=== PATIENT | male | born 1955 | race Caucasian/White ===

== ENCOUNTER 2019-08-06 09:58 | Observation (INO) ==
[2019-08-06] MEDS ORDERED: ASPIRIN PR ONE (10:22)
[2019-08-06] MEDS ORDERED: ASPIRIN PO ONE (10:22)
[2019-08-06 10:37] LABS: BASO# 0.03 X1000 (0.0-0.2); BASO% 0.2 % (0.0-0.8); EOS# 0.14 X1000 (0.0-0.7); EOS% 1.1 % (0.0-10.0); HEMATOCRIT 54.6 % (42.0-52.0); HEMOGLOBIN 17.3 g/dL (14.0-18.0); IMM GRAN# 0.04 X1000 (0.0-0.04); IMM GRAN% 0.3 % (0.0-0.5); LYMPH# 1.41 X1000 (1.2-3.4); MCH 28.9 PG (27-31); MCHC 31.7 g/dL (33-37); MCV 91.2 FL (81-99); MONO# 1.18 X1000 (0.11-0.59); MONO% 9.2 % (1.7-9.3); MPV 11.1 FL (7.4-10.4); NEUT% 78.2 % (42.2-75.2); PLT 255 X1000 (130-400); RBC 5.99 XMIL (4.7-6.1); RDW 14.9 % (11.5-14.5)
--- NOTE | 2019-08-06 10:41 | EKG Report ---
Test Performed on : 08/06/2019 10:11:13 AM Test Reason : neck pain Blood Pressure : / mmHG Vent. Rate : 107 BPM Atrial Rate : 107 BPM P-R Int : 132 ms QRS Dur : 076 ms QT Int : 326 ms P-R-T Axes : 073 052 087 degrees QTc Int : 435 ms Sinus tachycardia. Nonspecific T wave abnormality Abnormal ECG When compared with ECG of 08-MAY-2013 15:40, Nonspecific T wave abnormality now evident in Lateral leads Unconfirmed Result
[2019-08-06 10:50] LABS: INR 0.97; PROTIME 12.9 Seconds (11.0-16.0)
[2019-08-06 10:51] LABS: PTT 29.7 Seconds (22.3-41.8)
[2019-08-06 10:57] LABS: AGAP 16; ALB/GLOB RATIO 1.2; ALBUMIN 3.9 g/dL (3.5-5.0); ALKALINE PHOSPHATASE 95 U/L (32-122); BUN 11 mg/dL (8-22); CALCIUM 8.8 mg/dL (8.8-10.2); CHLORIDE 100 mmol/L (98-107); CK PROFILE 61 U/L (24-204); COSMO 281; CREATININE 0.9 mg/dL (0.7-1.2); ESTIMATED GFR > 60; GLUCOSE 166 mg/dL (70-104); GOT 13 U/L (10-34); GPT 13 U/L (10-44); POTASSIUM 4.2 mmol/L (3.5-5.1); SODIUM 139 mmol/L (136-145); TCO2 23 mmol/L (25-35); TOTAL BILIRUBIN 0.48 mg/dL (0.20-1.00); TOTAL PROTEIN 7.1 g/dL (6.3-8.3)
--- NOTE | 2019-08-06 10:58 | PROVIDER DOCUMENTATION ---
HPI-Screening - General Chief Complaint: Neck Pain Stated Complaint: NECK PAIN Time Seen by Provider: 08/06/19 10:53 Source: patient Allergies/Adverse Reactions: Allergies Allergy/AdvReac Type Severity Reaction Status Date / Time No Known Allergies Allergy Verified 05/04/16 11:27 Home Medications: Home Medication List Medication Instructions Recorded Confirmed Last Taken Type Losartan [Cozaar] 100 mg PO DAILY 12/16/12 05/04/16 05/03/16 History Metformin [Glucophage] 1,000 mg PO BID CC 12/16/12 05/04/16 05/03/16 History SIMVAstatin [Zocor] 20 mg PO QHS 12/16/12 05/04/16 05/03/16 History Tamsulosin [Flomax] 0.4 mg PO QHS 12/16/12 05/04/16 05/03/16 History Clopidogrel [Plavix] 75 mg PO DAILY 05/08/13 05/04/16 05/03/16 History Glipizide [Glipizide ER] 10 mg PO DAILY 05/08/13 05/04/16 05/03/16 History Methocarbamol 500 mg PO TID 05/08/13 05/04/16 05/03/16 History Albuterol Sulfate Inhaler 2 puff INH Q6H PRN PRN 11/12/13 05/04/16 05/03/16 History [Ventolin Hfa] Hydrocodone/Acetaminophen [Eads 1 each PO TID #10 tablet 05/04/16 Unknown Rx 7.5-325 Tablet] Ibuprofen [Motrin] 600 mg PO TID #20 tablet 05/04/16 Unknown Rx HPI: This is a 63 yowm that presents to the ED with left sided neck pain. The patients O2 sat was found to be 91% on RA during triage. He is currently on 2 L/min via NC and O2 remains 91-92%. Patient had a history of COPD and bulged disks in his neck. He states this pain is different from the pain he feels with the bulged disk. He complains of severe pain on palpation. Pain and difficulty with ROM started 2 days prior and have not gotten better or worse. He denies injury or sleeping wrong. Physical Exam-Screening - CONSTITUTIONAL General Appearance: appears well, alert, no apparent distress - EYES Eyes: pink conjunctivae - HEAD, EARS, NOSE, MOUTH & THROAT HENMT: normocephalic/atraumatic - NECK Neck: non-tender, supple, other (Patient has tenderness to left sternoclidomastoid muscle upon palpation. He cannot turn his neck or raise his head. Complains of pain and stiffness.) - RESPIRATORY Respiratory: chest non-tender, lungs clear, no accessory muscle use, decreased breath sounds (Decreased breath sounds in all armstrong) - CARDIOVASCULAR Cardiovascular: normal peripheral pulses, regular rate, rhythm, tachycardia - GASTROINTESTINAL (ABDOMEN) Abdominal Exam: normal bowel sounds, non tender, soft - MUSCULOSKELETAL Back Exam: no CVA tenderness, no vertebral tenderness, other (Tenderness and stiffness to left sternoclidomastoid muscle.) Extremity: normal range of motion Peripheral Pulses: radial (R): 2+ - SKIN Integumentary: normal color, warm/dry - PSYCHIATRIC Psych/Mental Status: normal mood/affect Screening Depart - Departure ED Screening Disposition: Continued in ED for Treatment Date of Disposition Decision: 08/06/19 Time of Disposition Decision: 10:53 DIAGNOSIS: Neck pain Disposition: STILL A PATIENT 30 Condition: Stable Referrals and Follow-Ups: None,PCP [Primary Care Provider] - Attestation - Physician/ VIVI Attestation Patient care was provided by Advanced Practice Provider:: Yes Advanced Practice Provider:: Delma Henry Advanced Practice Provider documentation review:: The Mid-level provider documentation, treatment plan and medical decision making was reviewed by the physician who agrees with all treatment and medical decision making by the MLP. The physician spent face to face time with patient:: No Advanced Practice Provider documentation review:: Supervising physician onsite and consulted in the evaluation and care of this patient. The physician did not have a face to face encounter with the patient.
--- NOTE | 2019-08-06 11:10 | Diag Imaging Result Doc PS360 ---
EXAM: CHEST-2 VIEWS 08/06/2019 HISTORY: neck pain TECHNIQUE: PA and lateral chest COMMENT: There is severe bullous emphysema in the upper lobes. There are platelike opacities in the mid lung armstrong and bases bilaterally. This has not changed appreciably since 11/04/2018. IMPRESSION: Severe COPD with fibrotic scars. Electronically signed by Sameer Caballero 08/06/2019 11:07 AM
--- NOTE | 2019-08-06 11:25 | Diag Imaging Result Doc PS360 ---
EXAM: CERVICAL SPINE COMPLETE 08/06/2019 HISTORY: neck pain TECHNIQUE: Five views with obliques COMMENT: There is marked disc space narrowing at C5-6 level with anterior and posterior osteophyte formation. There is also uncovertebral arthropathy at the C5-6 and C6-7 levels and severe facet arthropathy at C4-5 on the left. No evidence of fracture or subluxation is present and there is no prevertebral soft tissue swelling. IMPRESSION: Degenerative disc and facet disease with uncovertebral arthropathy as described above. Electronically signed by Sameer Caballero 08/06/2019 11:23 AM
[2019-08-06] MEDS ORDERED: ZOFRAN IV ONE (14:01)
[2019-08-06] MEDS ORDERED: DILAUDID IV ONE (14:01)
--- NOTE | 2019-08-06 14:34 | PROVIDER DOCUMENTATION ---
This chart was entered by Geno Young Scribe, acting as scribe for Rylan Irving MD. HPI-Musculoskeletal Pain/Inj - GENERAL Chief Complaint: Neck Pain Stated Complaint: NECK PAIN Time Seen by Provider: 08/06/19 10:53 Source: patient - HX OF PRESENT ILLNESS-MUSKULOSKELTAL Nature of Presenting Problem: Patient is a 63 year old male who presents with left side neck pain. States pain has been present for 2 days. History of bulging disc. Denies chest pain and shortness of breath. Quality of Pain: reports: aching Severity in ED: mild Onset/Duration: 2 days ago Timing: still present Modifying Factors: worse with: movement, palpation Any recent injury?: No Locality of Occurance: Home Similar Symptoms Previously?: Yes Recently seen or treated by another doctor?: No - BACK & NECK PAIN/INJURY Back/Neck Pain Location: reports: C-spine (left) Context / Method of Injury: reports: unknown Review of Systems - Adult - REVIEW OF SYSTEMS - ADULT Constitutional: reports: no symptoms reported Eyes: reports: no symptoms reported Ears, Nose, Mouth & Throat: reports: no symptoms reported Cardiovascular: reports: no symptoms reported. denies: chest pain Respiratory: reports: no symptoms reported. denies: shortness of breath Gastrointestinal: reports: no symptoms reported Genitourinary: reports: no symptoms reported Musculoskeletal: reports: see HPI, neck pain (left side). denies: back pain, muscle aches Integumentary: reports: no symptoms reported Neurological: reports: no symptoms reported Psychiatric: reports: no symptoms reported Endocrine: reports: no symptoms reported Hematologic/Lymphatic: reports: no symptoms reported Allergic/Immunologic: reports: no symptoms reported All Other Systems: Reviewed and Negative Past History - Adult - PAST MEDICAL HISTORY-ADULT Review of Records: reports: Old Records Reviewed, Nursing Assessment Review, Medications Reviewed, Social history reviewed & non-contributory. Major Childhood Illnesses: reports: denies history Cardiovascular: reports: HTN Respiratory: reports: COPD Gastrointestinal: reports: denies history Obstetrical/Gynecological: reports: denies history Genitourinary: reports: denies history Musculoskeletal: reports: denies history Neurological: reports: CVA Endocrine/Immune: reports: Diabetes Other Conditions: reports: denies history - PRIOR SURGERIES/PROCEDURES Surgical/Procedure History: reports: hernia repair - IMMUNIZATION STATUS Childhood Immunizations: See Nurse Assessment Flu Vaccine: See Nurse Assessment - FAMILY HISTORY Family History: reviewed, not pertinent - SOCIAL HISTORY Smoking: cigarettes, greater than 1 pack/day Provider spent 3-5 mins advising pt. on dangers of tobacco.: Discussed manners to quit use, and f/u contacts for add'l counseling. Substance Use: denies Physical Exam-Injury Related - Physical Exam-Injury Related Initial Vital Signs Reviewed: Yes General Appearance: alert, no apparent distress. negative: lethargic Head, Ears, Nose, Mouth & Throat: normocephalic/atraumatic, moist mucous membranes. negative: angioedema Neck: negative: C-spine tenderness Respiratory: chest non-tender, wheezing (bilateral) Cardiovascular: regular rate, rhythm, no gallop, systolic murmur. negative: tachycardia Extremity: non-tender, normal inspection. negative: pedal edema Integumentary: normal color, warm/dry. negative: diaphoresis, pallor Neurologic: grossly normal. negative: aphasia, facial droop Psych/Mental Status: oriented x 3, disheveled. negative: anxious Progress - PLAN OF CARE/RESULTS Progress/Plan/Lab Results: Vital Signs - 8 hr 08/06/19 10:05 08/06/19 11:55 Temperature 97.8 F 98.4 F Pulse Rate 111 H 107 H Respiratory Rate 24 22 Blood Pressure 92/53 90/54 O2 Sat by Pulse Oximetry 91 L 99 Laboratory Results - last 24 hr 08/06/19 08/06/19 08/06/19 10:18 10:18 10:18 WBC RBC Hgb Hct MCV MCH MCHC RDW Std Deviation Plt Count MPV Immature Gran % (Auto) Neut % (Auto) Lymph % (Auto) [place] % (Auto) Eos % (Auto) Baso % (Auto) Immature Gran # (Auto) Neut # (Auto) Lymph # (Auto) [place] # (Auto) Eos # (Auto) Baso # (Auto) PT INR PTT (Actin FS) Sodium 139 Potassium 4.2 Chloride 100 Carbon Dioxide 23 L Anion Gap 16 BUN 11 Creatinine 0.9 Estimated GFR/1.73 m2 > 60 BUN/Creatinine Ratio 12 Glucose 166 H Calculated Osmolality 281 Calcium 8.8 Total Bilirubin 0.48 AST 13 ALT 13 Alkaline Phosphatase 95 Creatine Kinase 61 Troponin T High Sens 24 H* Fdb-H-Nnyixybzhit Pept 76 Total Protein 7.1 Albumin 3.9 Globulin 3.2 Albumin/Globulin Ratio 1.2 08/06/19 08/06/19 10:18 10:18 WBC 12.80 H RBC 5.99 Hgb 17.3 Hct 54.6 H MCV 91.2 MCH 28.9 MCHC 31.7 L RDW Std Deviation 14.9 H Plt Count 255 MPV 11.1 H Immature Gran % (Auto) 0.3 Neut % (Auto) 78.2 H Lymph % (Auto) 11.0 L [place] % (Auto) 9.2 Eos % (Auto) 1.1 Baso % (Auto) 0.2 Immature Gran # (Auto) 0.04 Neut # (Auto) 10.00 H Lymph # (Auto) 1.41 [place] # (Auto) 1.18 H Eos # (Auto) 0.14 Baso # (Auto) 0.03 PT 12.9 INR 0.97 PTT (Actin FS) 29.7 Sodium Potassium Chloride Carbon Dioxide Anion Gap BUN Creatinine Estimated GFR/1.73 m2 BUN/Creatinine Ratio Glucose Calculated Osmolality Calcium Total Bilirubin AST ALT Alkaline Phosphatase Creatine Kinase Troponin T High Sens Gjk-Q-Gzbqwrbivfu Pept Total Protein Albumin Globulin Albumin/Globulin Ratio Orders Category Date Time Status Cardiac Monitoring DIRECTED Care 08/06/19 10:22 Active Oxygen Therapy- ED Nursing DIRECTED Care 08/06/19 10:22 Active Saline Loc NOW Care 08/06/19 10:22 Active CERVICAL SPINE COMPLETE [RAD] Stat Exams 08/06/19 10:52 Completed CHEST-2 VIEWS [RAD] Stat Exams 08/06/19 10:22 Completed CBC WITH ELECTRONIC DIFF [HEME] Stat Lab 08/06/19 10:18 Completed CK PROFILE [SP CHEM] Stat Lab 08/06/19 10:18 Completed COMPREHENSIVE METABOLIC PANEL [CHEM] Stat Lab 08/06/19 10:18 Completed PRO B-NATRIURETIC PEPTIDE Stat Lab 08/06/19 10:18 Completed PROTIME WITH INR [COAG] Stat Lab 08/06/19 10:18 Completed PTT [COAG] Stat Lab 08/06/19 10:18 Completed TROPONIN T HIGH SENSITIVITY Stat Lab 08/06/19 10:18 Completed Aspirin Med 08/06/19 10:22 Discontinued 300 mg UT NOW ONE Aspirin Med 08/06/19 10:22 Discontinued 325 mg PO NOW ONE Hydromorphone [Dilaudid] Med 08/06/19 14:01 Discontinued 0.5 mg IV NOW ONE Ondansetron [Zofran] Med 08/06/19 14:01 Discontinued 4 mg IV NOW ONE CP/SOB/Palp >45 yrs of Age Stat Oth 08/06/19 10:22 Ordered EKG [EKG] Stat Ther 08/06/19 10:22 Draft Result Diagrams: 08/06/19 10:18 08/06/19 10:18 - EKG 1 Time of EKG reading by physician:: 10:11 EKG Read and Signed by:: Rylan Irving EKG Interpretation (*Must complete 3 of following elements*): Abnormal Rate: 107 Rhythm: sinus tachycardia [place]: normal [place] Interval: normal Comments: nonspecific T wave abnormality. - XRAY 1 XRAY Study: Chest Impression: See EMR Report ( EXAM: CHEST-2 VIEWS 08/06/2019 HISTORY: neck pain TECHNIQUE: PA and lateral chest COMMENT: There is severe bullous emphysema in the upper lobes. There are platelike opacities in the mid lung armstrong and bases bilaterally. This has not changed appreciably since 11/04/2018. IMPRESSION: Severe COPD with fibrotic scars. Electronically signed by Sameer Caballero 08/06/2019 11:07 AM 08/06/19 1107 Interpreting Physician: Sameer Caballero MD Dictated Date/Time: 08/06/19 1106 cc: None,PCP ; None,PCP) 2 XRAY Study: C-Spine Impression: See EMR Report ( EXAM: CERVICAL SPINE COMPLETE 08/06/2019 HISTORY: neck pain TECHNIQUE: Five views with obliques COMMENT: There is marked disc space narrowing at C5-6 level with anterior and posterior osteophyte formation. There is also uncovertebral arthropathy at the C5-6 and C6-7 levels and severe facet arthropathy at C4-5 on the left. No evidence of fracture or subluxation is present and there is no prevertebral soft tissue swelling. IMPRESSION: Degenerative disc and facet disease with uncovertebral arthropathy as described above. Electronically signed by Sameer Caballero 08/06/2019 11:23 AM 08/06/19 1123 Interpreting Physician: Sameer Caballero MD Dictated Date/Time: 08/06/19 1121 cc: Delma Henry; None,PCP) - CONSULTS/PCP/HOSPITALIST Notification #1 *Consult/PCP/Hospitalist*: MELO Mays for Hospitalist Time Discussed: 14:24 Reason/Comments: Dr. Irving consulted with [facility] about patient. Consult Disposition: Will see in ED, Admit Departure - Departure Date of Disposition Decision: 08/06/19 Time of Disposition Decision: 14:25 DIAGNOSIS: Neck pain, Elevated troponin, Atypical chest pain Disposition: ADMITTED INPATIENT 09 Certified Medical Emergency: Emergent Condition: Fair Referrals and Follow-Ups: None,PCP [Primary Care Provider] - - Critical Care Note This patient required my direct & personal management of CC.: No Attestation - Physician/ VIVI Attestation Patient care was provided by Advanced Practice Provider:: No The physician spent face to face time with patient:: Yes Advanced Practice Provider documentation review:: Supervising physician onsite and consulted in the evaluation and care of this patient. The physician did have a face to face encounter with the patient. This chart was documented by the indicated scribe, (Geno Young Scribe) and accurately reflects the services I performed and decisions made by me, Rylan Irving MD, as attested by the provider's signature.
[2019-08-06] MEDS ORDERED: TYLENOL PO PRN (15:53)
[2019-08-06] MEDS ORDERED: ZOFRAN IV PRN (15:53)
--- NOTE | 2019-08-06 17:04 | Diag Imaging Result Doc PS360 ---
EXAM: MRI CERVICAL SPINE W/O CON INDICATION: severe neck pain TECHNIQUE: COMPARISON: None. FINDINGS: The osseous marrow signal is unremarkable. The cervical spinal cord signal appears normal. The structures at the base the brain and the surrounding soft tissues are grossly unremarkable. Segmental analysis of the cervical spine is detailed below. C1-2: Sagittal images of this level are essentially unremarkable. C2-3: There is a right lateralizing uncovertebral osteophyte is causing moderate right foraminal stenosis. The left neuroforamen is patent. There is no cord compression. C3-4: There is a broad-based disc osteophyte complex. It is causing moderate bilateral foraminal stenosis and moderate to severe central spinal stenosis. There is some contact with the surface of the spinal cord. However, no definite mass effect is identified. C4-5: There is a broad-based disc osteophyte complex is causing only mild effacement of the ventral thecal sac with no cord compression. There is also left facet hypertrophy. Together, this is causing moderate to severe left neuroforaminal stenosis and mild right neuroforaminal stenosis. C5-6: There is a broad-based disc osteophyte complex that is causing moderate central stenosis. No definite cord compression is appreciated. Uncovertebral osteophytes are causing moderate to severe bilateral foraminal stenosis. C6-7: There is a broad-based disc osteophyte complex causing moderate central stenosis but no definite cord compression. Uncovertebral osteophytes are causing moderate to severe bilateral foraminal stenosis. C7-T1: There is a small broad-based disc bulge causing mild effacement of the ventral thecal sac and no cord compression. There are bilateral uncovertebral osteophytes causing mild to moderate right neuroforaminal stenosis and mild left neuroforaminal stenosis. IMPRESSION: Extensive multilevel degenerative arthropathy throughout the cervical spine as detailed level by level above. Electronically signed by Sha Miranda 08/06/2019 5:01 PM
[2019-08-06] MEDS ORDERED: VENTOLIN HFA INH PRN (17:38)
[2019-08-06] MEDS: SYMBICORT 80/4.5 MICROGM INHALER INH SCH (19:54)
[2019-08-06] MEDS: FLOMAX PO SCH (21:20)
[2019-08-06] MEDS: ZOCOR PO SCH (21:20)
[2019-08-06] MEDS: NORCO-7.5 PO PRN (21:23)
--- NOTE | 2019-08-06 22:59 | HISTORY AND PHYSICAL ---
PRIMARY CARE PROVIDER: None. CHIEF COMPLAINT: Neck pain. HISTORY OF PRESENT ILLNESS: Mr. Rios is a 63-year-old male who carries a past medical history of hypertension, COPD, diabetes mellitus, CVA, bulging disks in the back and neck, who reports for 2 days now he is unable to turn his neck to the left or back or lift his head up. He has never had this type of neck pain before. It is mainly on the left side. He does not feel that he has slept drawn or lifted anything having to cause this discomfort. His fear is that it is his bulging disk causing the issues. There is no associated nerve pain. No numbness or tingling down either extremity. He does have diabetic neuropathy in his lower extremities, that is not new to him. He has had no issues with bowel or bladder control. He denies any shortness of breath, chest pain, nausea, vomiting, diaphoresis, fever, chills, cough. His main complaint is the left-sided neck pain and unable to move his head or neck really to the left side, minimally to the right and up to drink. Initial cervical x-ray showed degenerative disk and facet disease with arthropathy. We did a cervical spine MRI to rule out any cord compression, it just shows extensive multilevel degenerative arthropathy throughout the cervical spine. It does show at C1 through T1 a small broad-based disk bulge causing mild effacement of the ventral thecal sac, but no cord compression. We will admit him with intractable pain. We will continue his Robaxin, his home medications and will do p.o. [place]. PAST MEDICAL HISTORY: Per HPI. PAST SURGICAL HISTORY: 1. Bulging disk repair on his lower back. 2. Hernia repair. REVIEW OF SYSTEMS: Completely negative except for those mentioned in HPI. FAMILY HISTORY: Reviewed, not pertinent. SOCIAL HISTORY: He is a pack per day smoker, has done so since the age of 7-1/2 years old. He reports he has gone down to a half a pack per day. PHYSICAL EXAMINATION: VITAL SIGNS: Temperature is 97.9 degrees, heart rate 62, blood pressure is 110/89, O2 is in the 90s on 2 L nasal cannula. GENERAL: Mr. Rios is a 63-year-old male who is sitting up on the stretcher in no acute distress. HEENT: Atraumatic, normocephalic. PERRL. NECK: Tender to the touch on the left side. CARDIOVASCULAR: S1, S2 appreciated. No murmurs, gallops, rubs noted. RESPIRATORY: Lung sounds clear bilaterally. GASTROINTESTINAL: Soft, nontender, nondistended. Positive bowel sounds 4 quads. EXTREMITIES: Lower extremities negative for edema. NEUROLOGIC: No focal deficits noted. Again, he does have pain and has a hard time turning his head, especially to the left. He does have some range of motion to the right. He is unable to tilt his head too far back. It is hard for him to take sips of water in. DIAGNOSTIC DATA: Per HPI. LABORATORY DATA: White count 12, hemoglobin and hematocrit is 17 and 54, platelet count of 255,000. Sodium 139, potassium 4.2, BUN 11, creatinine 0.9. Blood glucose is 166, Magnesium 1.8. Two sets of troponins were 24. ASSESSMENT/PLAN: 1. Left-sided neck pain, intractable. Patient does have known bulging disk. MRI of the cervical spine showed multiple extensive level degenerative arthropathy throughout the cervical spine. We will continue with pain control as well as muscle relaxers. 2. Diabetes mellitus. We will continue on sliding scale and home medications. 3. Chronic obstructive pulmonary disease. Questionable hypoxemia. We will continue on O2 for now. He did not have a great pleth on the monitor. We will continue with his home breathing treatments. 4. Tobacco use and abuse. We will continue with education on smoking cessation as well as the means to quit. 5. Hypertension. Continue home regimen. 6. Cerebrovascular accident in 2013 with no residual weakness. 7. Further recommendation to follow physician evaluation, laboratory and diagnostic data. 8. Elevated troponin; however, when you calculate it out, it is actually negative. We will not be ruling him in for any chest pain rule out. Dictated by MELO Goldstein for Jasvir Baum MD cc: MD ALEXA Long
[2019-08-07] MEDS: PRILOSEC PO SCH (06:32)
--- NOTE | 2019-08-07 06:36 | Diag Imaging Result Doc PS360 ---
EXAM: CHEST-PORTABLE HISTORY: Chest Pain TECHNIQUE: Single view COMPARISON: 08/06/2019 FINDINGS: The lungs are hyperexpanded. No cardiomegaly. There is scarring in the mid right lung. No consolidation. No pleural effusions identified. IMPRESSION: Emphysema with fibrosis Electronically signed by Daren Oconnell 08/07/2019 6:33 AM
[2019-08-07 07:14] LABS: BASO# 0.02 X1000 (0.0-0.2); BASO% 0.2 % (0.0-0.8); EOS# 0.23 X1000 (0.0-0.7); EOS% 2.3 % (0.0-10.0); HEMATOCRIT 51.1 % (42.0-52.0); HEMOGLOBIN 16.4 g/dL (14.0-18.0); LYMPH# 1.54 X1000 (1.2-3.4); LYMPH% 15.1 % (20.5-51.1); MCH 29.4 PG (27-31); MCHC 32.1 g/dL (33-37); MCV 91.7 FL (81-99); MONO# 1.17 X1000 (0.11-0.59); MONO% 11.4 % (1.7-9.3); MPV 11.2 FL (7.4-10.4); NEUT# 7.26 X1000 (1.4-6.5); PLT 223 X1000 (130-400); RBC 5.57 XMIL (4.7-6.1); RDW 14.9 % (11.5-14.5); WBC 10.22 X1000 (4.8-10.8)
[2019-08-07] MEDS ORDERED: GLUCOPHAGE PO SCH (08:00)
[2019-08-07 08:05] LABS: AGAP 13; ALBUMIN 3.6 g/dL (3.5-5.0); ALKALINE PHOSPHATASE 83 U/L (32-122); BUN 17 mg/dL (8-22); CALCIUM 8.6 mg/dL (8.8-10.2); CHLORIDE 99 mmol/L (98-107); COSMO 279; ESTIMATED GFR > 60; GLUCOSE 138 mg/dL (70-104); GOT 14 U/L (10-34); GPT 13 U/L (10-44); POTASSIUM 4.2 mmol/L (3.5-5.1); SODIUM 138 mmol/L (136-145); TCO2 26 mmol/L (25-35); TOTAL BILIRUBIN 0.59 mg/dL (0.20-1.00); TOTAL PROTEIN 7.3 g/dL (6.3-8.3)
[2019-08-07] MEDS: LANTUS INSULIN SUBQ SCH (08:28)
[2019-08-07] MEDS: ROBAXIN PO SCH ×3 (08:29→16:53)
[2019-08-07] MEDS: ASPIRIN PO SCH (08:29)
[2019-08-07] MEDS: JANUVIA PO SCH (08:29)
[2019-08-07] MEDS: PLAVIX PO SCH (08:29)
[2019-08-07] MEDS: GLUCOTROL XL PO SCH (08:29)
[2019-08-07] MEDS: NON-FORMULARY MED (Dapagliflozin Propanediol [Farxiga] 10 MG) PO SCH (09:45)
[2019-08-07] MEDS: CYMBALTA PO SCH (09:45)
[2019-08-07] MEDS: SYMBICORT 80/4.5 MICROGM INHALER INH SCH ×2 (10:08→19:38)
[2019-08-07] MEDS: NORCO-7.5 PO PRN ×2 (13:10→20:33)
--- NOTE | 2019-08-07 19:02 | PROGRESS NOTE ---
DATE: 08/07/2019 SUBJECTIVE: This morning, Mr. Rios refers to be doing well. Still has neck pains, but has significantly improved. He still denies any urinary symptoms. No fecal incontinence and he has good strength and power in the lower extremities and upper extremities. OBJECTIVE: Vital signs: Blood pressure is 121/64, pulse of 88, respiration is 19, temperature is 98.3 degrees. General: Mr. Rios is a 63-year-old gentleman. He is in bed in no distress. HEENT: Mucosa is pink and moist. Anicteric. Acyanotic. Chest: Good air entry bilaterally. There were no crepitations. No rhonchi. Cardiovascular: Regular rate and rhythm. There were no murmurs, no rubs, no gallops. GI: Abdomen was soft, nontender. Bowel sounds were present. Extremities: No pedal edema. Distal pulses present. 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 The patient does have some tenderness over the cervical spine processes associated with paraspinal tenderness, with minimum limitation of the head turning to the left, but normal full range of motion turning to the right. The patient has no sensation deficit in the upper extremities, and he has normal power in both upper extremities. The patient also has normal power and sensation in the lower extremities. LABORATORY DATA: CBC is completely normal. Chemistry is also unremarkable. Glucose is 138. Patient's A1c was 7.0. Cervical MRI, which was done yesterday, shows extensive multilevel degenerative arthropathy throughout the cervical spine, but no significant cord compression noted. ASSESSMENT: 1. Severe neck pain secondary to multilevel degenerative disk disease of the cervical spine. The patient is currently on pain management. We will consult Physical Therapy as well. I will also try and get Neurosurgery in [facility] to take a look at the MRI and recommend if patient can be seen as an outpatient over there, or if they prefer to see him inpatient. 2. Diabetes mellitus, with a presenting A1c of 7.0. We will continue with patient's home medication with the exception of metformin. 3. History of chronic obstructive pulmonary disease, currently not in exacerbation. 4. Tobacco use and abuse. Patient has been counseled. 5. Hypertension. 6. Remote history of cerebrovascular accident in 2012. No residual deficit. cc: Jasvir Baum MD
[2019-08-07] MEDS: ZOCOR PO SCH (20:28)
[2019-08-07] MEDS: FLOMAX PO SCH (20:28)
[2019-08-08] MEDS: PRILOSEC PO SCH (06:44)
[2019-08-08] MEDS: NORCO-7.5 PO PRN (06:46)
[2019-08-08 08:05] VITALS: BP 108/68
[2019-08-08] MEDS: SYMBICORT 80/4.5 MICROGM INHALER INH SCH (08:29)
[2019-08-08] MEDS: GLUCOTROL XL PO SCH (08:57)
[2019-08-08] MEDS: ROBAXIN PO SCH (08:57)
[2019-08-08] MEDS: CYMBALTA PO SCH (08:57)
[2019-08-08] MEDS: ASPIRIN PO SCH (08:57)
[2019-08-08] MEDS: NON-FORMULARY MED (Dapagliflozin Propanediol [Farxiga] 10 MG) PO SCH (08:57)
[2019-08-08] MEDS: PLAVIX PO SCH (08:57)
[2019-08-08] MEDS: JANUVIA PO SCH (08:57)
[2019-08-08] MEDS: LANTUS INSULIN SUBQ SCH (09:00)
[2019-08-08] MEDS ORDERED: PNEUMOVAX 23 IM ONE (10:33)
[2019-08-08] MEDS ORDERED: FLU VACCINE IM ONE (10:33)
--- NOTE | 2019-08-09 23:15 | DISCHARGE SUMMARY ---
ADMISSION DATE: 08/06/2019 DISCHARGE DATE: 08/08/2019 DISPOSITION: Home. FOLLOWUP: 1. Dr. Dr. Pugh at [facility] [address] The phone number has been provided. INVASIVE PROCEDURES DONE DURING THIS ADMISSION: None. IMAGING STUDIES OF SIGNIFICANCE: Severe COPD with fibrotic scars. Cervical spine showed degenerative disk and facet disease with unconvertible arthropathy. Cervical spine MRI did show extensive multilevel degenerative arthropathy. ADMISSION DIAGNOSES: 1. Left-sided neck pain. 2. Diabetes mellitus. 3. Severe chronic obstructive pulmonary disease (COPD). DIAGNOSES AT THE TIME OF DISCHARGE: 1. Severe neck pain secondary to multilevel degenerative disk disease of the cervical spine with no obvious cord compression. 2. Diabetes mellitus with presenting A1c of 7.0. 3. Chronic obstructive pulmonary disease (COPD), currently not in exacerbation. 4. Tobacco use and abuse. 5. Hypertension. 6. Remote history of cerebrovascular accident (CVA) in 2012, no residual deficit. 7. Dyslipidemia. DISCHARGE MEDICATIONS: 1. Metformin 1000 b.i.d. 2. Tamsulosin 0.4 p.o. at bedtime. 3. Simvastatin 20 mg p.o. at bedtime. 4. Glipizide 10 mg p.o. daily. 5. Methocarbamol 500 p.o. 3 times per day. 6. Clopidogrel 75 mg p.o. daily. 7. Farxiga. 8. Sitagliptin 100 mg p.o. daily. 9. Insulin glargine 20 units subcutaneously q.a.m. 10. Duloxetine 60 mg p.o. daily. 11. Omeprazole 40 mg p.o. daily. 12. [place] 10/7.5 p.o. q.4 p.r.n. 13. Omeprazole 20 mg p.o. daily. PRESENTING COMPLAINT: Neck pain. HISTORY OF PRESENT COMPLAINT: Mr. Rios is a 63-year-old male who is known to have multiple lower back disk bulging status post repair, came to the emergency room because of excruciating neck pain. Initially, his presentation was interpreted to be cardiac, so he was initially consulted for acute coronary syndrome rule out. HOSPITAL COURSE: Mr. Rios was evaluated in the ER by me. After reviewing his data, it became apparent that he was more musculoskeletal pain around the neck. We suspected that he had cervical spondylosis, so an MRI was ordered which was done the following day. Please refer to the complete details of the report in the chart but it was obvious that he had multilevel discopathy without any encroachment on the cord. I was also able to reach out to [facility], spoke with the rotary drill operator helper and I pushed the image, the MRI, and the cervical spine x-rays to their PACS System and I wanted to talk to the neurosurgeon training and development professional. Unfortunately, Dr. Pugh I understand was in surgery, however he was able to make time to look at the images and his recommendation was that, since the patient was not having any acute myelopathy or acute neurological deficit, the patient could follow up with them in the office on an outpatient basis. This was related to Mr. Rios today. His neck pain has significantly improved since the hospital course with pain management and physical therapy. We think he is now stable to be discharged. He is going to follow up with Dr. Pugh at the [facility] in [facility]. All the discharge instructions have been discussed with him and he voiced understanding. Of note, Mr. Rios had a lower back surgery done a couple years ago by Dr. Andre Spaulding. However, I understand this physician is no longer practicing in [facility] so he will see Dr. Pugh. TIME SPENT: Time spent for discharge was 38 minutes. cc: MD Dr. Dawna Long
== END 2019-08-08 11:24 | disposition home or self-care (01) ==
LOC: ED 09:58 → INTOOBSV 15:09 → EDIPHOLD 15:09 → 3N 16:59
PROVIDERS: ATTEND Internal Medicine